=== PATIENT | female | born 1975 | race Two or more races ===

== ENCOUNTER → 2022-08-30 12:56 | Outpatient (REF) | payer MEDICAID, SELFPAY ==
--- NOTE | 2022-08-30 13:01 | HM_ITS ---
Conclusion: 1. Patient was monitored for total period of 23 hours and 40 minutes 2. Baseline was normal sinus rhythm with average heart of 86 beats per minute 3. No significant arrhythmias noted 4. No pauses or bradycardia noted 5. Patient reported 1 event while walking to the hospital correlated with sinus tachycardia MTDD
== END ==
LOC: HO.CARD 12:56
PROVIDERS: Visit Provider Internal Medicine
DX: R00.2 Palpitations (principal); R53.1 Weakness
CPT/HCPCS: 93225

== ENCOUNTER 2022-08-31 12:39 | Outpatient (REF) | payer MEDICAID, SELFPAY ==
[2022-08-31 13:22] LABS: MANUAL DIFF FLAG NO
[2022-08-31 14:21] LABS: Lactate Dehydrogenase 113 U/L (122-220); Rheumatoid Factor < 13.0 IU/mL (<15.0)
[2022-08-31 14:29] LABS: Basophils Percent Auto 0.5 % (0-2); Eosinophils Percent Auto 0.7 % (0-4); Hematocrit 39.8 % (37.0-47.0); Imm Gran Abs Auto 0.01 X10*3/uL (0.00-0.03); Imm Gran Pct Auto 0.2 % (0.0-0.4); Mean Corpuscular HGB Conc 32.7 g/dl (31.0-35.0); Mean Corpuscular Hemoglobin 28.5 pg (27.0-33.0); Mean Corpuscular Volume 87.3 fL (80.0-98.0); Mean Platelet Volume 9.9 fL (9.4-12.3); Monocytes Absolute Auto 0.3 X10*3/uL (0.1-1.2); Monocytes Percent Auto 7.2 % (2-11); Neutrophils Absolute Auto 2.7 x10*3/uL (2.0-8.3); Neutrophils Percent Auto 67.4 % (45-73); Platelet Count 329 X10*3/uL (160-400); Red Blood Count 4.56 X10*6/uL (4.20-5.50); Red Cell Distribution Width 12.1 % (11.0-16.0)
[2022-08-31 14:42] LABS: Syphilis Screen Nonreactive (Nonreactive)
[2022-09-02 08:49] LABS: ~HepC Num1 0.05 S/CO (0.00-0.79); ~Hepatitis C Antibody Nonreactive (Nonreactive)
[2022-09-02 09:08] LABS: HBc Num1 0.07 S/CO (0.00-0.79); HBsAGNum1 0.29 S/CO (0.00-0.99); HIV AB/AG Nonreactive (Nonreactive); HIV Num 1 0.04 S/CO (0.00-0.99); Hepatitis B Core Antibody Nonreactive (Nonreactive); Hepatitis B Surface Antigen Negative (Negative)
[2022-09-02 10:34] LABS: ~Hepatitis B Surface Antibody NONREACTIVE (Nonreactive)
[2022-09-02 18:54] LABS: EBV-NA IgG Index >600.00 U/mL; EBV-VCA IgM Ab >160.00 U/mL; Toxoplasma IgG Antibody <7.20 IU/mL; Toxoplasma IgM Antibody <8.00 AU/mL
[2022-09-02 21:38] LABS: TS Negative Control Passed; TS Panel A 1; TS Panel B 0; TS Positive Control Passed; TSpotTB Negative (Negative)
[2022-09-03 22:49] LABS: PTT (LAC) Screen 34 sec (<=40)
== END 2022-08-31 12:40 | disposition home or self-care (01) ==
LOC: HO.LAB 12:39
PROVIDERS: PCP Internal Medicine; Visit Provider Internal Medicine
DX: Z11.4 Encounter for screening for human immunodeficiency virus [HIV] (principal); D72.819 Decreased white blood cell count, unspecified; R59.0 Localized enlarged lymph nodes; J02.9 Acute pharyngitis, unspecified
CPT/HCPCS: 83615; 85025; 85597; 85613; 85730; 86038; 86140; 86225; 86235; 86431; 86481; 86664; 86665; 86704; 86706; 86777; 86778; 86780; 86803; 87340; 87389

== ENCOUNTER → 2022-09-23 10:40 | Outpatient (BNV) | payer MEDICAID, SELFPAY | PROVIDERS: PCP Internal Medicine; Visit Provider Internal Medicine | DX: D72.819 Decreased white blood cell count, unspecified (principal) | CPT/HCPCS: 99203; 99214 ==

== ENCOUNTER 2023-06-20 11:14 | Outpatient (AMB) | payer MEDICAID, SELFPAY ==
--- NOTE | 2023-06-20 11:29 | A.OFFVIS_ITS ---
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 Started a few months ago. Pt states she works on her feet but also at her desk depending on the day. Has not tried compression socks before. Accompanied by: Self / Same As Patient Allergies amoxicillin Allergy (Intermediate, Verified 06/20/23 11:37) Stomach Upset aspirin Allergy (Intermediate, Verified 06/20/23 11:37) swelling penicillin V Allergy (Intermediate, Verified 06/20/23 11:37) Diarrhea ketorolac Allergy (Unknown, Verified 06/20/23 11:37) swelling HPI AUTOMATION ANALYST Edema HPI Details Pleasant 48-year-old female patient presents for painful varicose veins. Complaints include pain over varicosities, swelling of lower extremities, cramping, fatigue, and heaviness of the lower extremities. It has been affecting there daily activities including walking. It is noted more so in right leg. She also notes left ankle swelling Patient denies any previous venous surgery or injections. Patient denies any history of DVT/ PE. Patient denies any history of phlebitis. Trial of compression includes - [id number] They now present for vascular evaluation regarding their varicose veins. [facility] Medical History (Updated 06/21/23 @ 07:20 by Gerardo Posada MD) delivery delivered Surgical History H/O: hysterectomy (~2020) Family History (Updated 06/20/23 @ 11:39 by SARA Choudhary) Brother Cancer Mother Varicose veins of both lower extremities Alcohol intake: never Patient Tobacco Use Status: Never used Tobacco Review of Systems Const Reports as per HPI ENT Reports no additional complaints Card Denies chest pain, Denies chest pain at rest and Denies chest pain with activity Resp Denies chest congestion and Denies cough GI Reports no additional complaints Musc Details: pain over varicosities, aching of lower extremities, swelling, cramping, heaviness and tiredness, itching Denies abnormal gait Skin/Breast Reports pruritus and Denies wounds Neuro Reports no additional complaints and Denies abnormal gait Psych Denies no additional complaints Physical Exam Vital Signs: BMI result Body Mass Index 28.0 Const General: cooperative, healthy appearing and comfortable Orientation/consciousness: oriented to person, oriented to place and oriented to time Neck Carotids: no bruits Chest Chest palpation & inspection: normal inspection of the chest and normal palpation of entire chest wall Resp Effort & Inspection: normal respiratory effort and able to speak in complete sentences Cardio Rate: regular rate Heart sounds: S1 normal heart sound present and S2 normal heart sound present Peripheral pulses: Peripheral pulses 2+ throughout GI Inspection: Yes normal to inspection Skin Other: +2 edema, large rope-like varicosities greater than 4 mm CEAP Classification C4 - skin color changes Ep - Etiology Primary As - superficial veins P - reflux General skin exam: dry skin Neuro General: oriented to person, oriented to place and oriented to time Extrem Right lower extremity: full ROM, normal capillary refill and edema Left lower extremity: full ROM, normal capillary refill and edema Psych Mental Status: mental status grossly normal Assessment & Plan Assessment & Plan (1) Varicose veins of right lower extremity with inflammation: Code(s): I83.11 - Varicose veins of right lower extremity with inflammation Plan: In short, the patient has evidence of venous insufficiency. I have discussed the pathophysiology with the patient. In addition I have provided informational material regarding venous disease to the patient. We have discussed conservative measures including compression, elevation, and exercise. I have also provided a handout regarding appropriate use of compression stockings and where to purchase good compression stockings as well. I have taken the liberty of ordering venous insufficiency testing with the patient. They will follow up with me after testing. The patient had an opportunity to ask questions regarding the treatment plan. All questions were answered. Imaging studies, laboratory studies and physical exam results were discussed and reviewed in detail. No major barriers to understanding were identified. The patient expressed understanding and agreement with the above treatment plan. The patient is aware they should contact our office by phone for worsening of the current condition or the appearance of new symptoms. Thank you for allowing me to participate in the vascular care of this patient. If you have any questions or concerns regarding the treatment for the above condition please do not hesitate to contact me. The office telephone contact is [phone]. This note is constructed using voice recognition software. While every effort has been made to ensure accuracy, pan shaker errors may have been included. Thank you for allowing me to participate in the care of your patient. Yours sincerely, Gerardo Posada MD, FACS, R.P.V.I. Orders: Orders US venous duplex LE BI 1 Week I83.11 - Varicose veins of right lower extremity with inflammation Coding Level of Care Code New Pt Level 4 (36392) Diagnoses Varicose veins of right lower extremity with inflammation I83.11
[2023-06-20 11:33] VITALS: BMI 28.0
== END 2023-06-20 12:22 | disposition home or self-care (01) ==
PROVIDERS: PCP Internal Medicine; Visit Provider Surgery Vascular Surgery
DX: I83.11 Varicose veins of right lower extremity with inflammation (principal)
CPT/HCPCS: 99203

== ENCOUNTER → 2023-06-20 11:14 | Outpatient (BNVA) | payer MEDICAID, SELFPAY | PROVIDERS: PCP Internal Medicine; Visit Provider Surgery Vascular Surgery | DX: I83.11 Varicose veins of right lower extremity with inflammation (principal) | CPT/HCPCS: 99202 ==

== ENCOUNTER 2023-09-21 14:56 | Outpatient (REF) | payer OTHER, SELFPAY ==
[2023-09-21 16:08] LABS: Rheumatoid Factor 14.9 IU/mL (<15.0)
[2023-09-21 16:11] LABS: Uric Acid 2.6 mg/dL (2.4-5.7)
[2023-09-22 10:23] LABS: Lyme Abs Screen <0.90 index
[2023-09-25 12:19] LABS: RPR Rapid Plasma Reagin NON-REACTIVE (NON-REACTIVE)
[2023-09-30 18:28] LABS: Anti Nuclear Antibody Screen POSITIVE (NEGATIVE)
== END 2023-09-21 14:57 | disposition home or self-care (01) ==
LOC: HO.HHCL 14:56
PROVIDERS: Visit Provider Emergency Medicine
DX: M25.522 Pain in left elbow (principal); L98.9 Disorder of the skin and subcutaneous tissue, unspecified
CPT/HCPCS: 36415; 84550; 86038; 86039; 86431; 86592; 86617; 86618

== ENCOUNTER 2023-10-13 13:55 | Outpatient (REF) | payer OTHER, SELFPAY ==
--- NOTE | 2023-10-13 | EMG_ITS ---
Chief complaint: Right worse than left hand numbness Reason for referral: Evaluate for Carpal Tunnel Syndrome Referred by: Dr. Ignacio Procedure done: Bilateral upper extremities NCS/EMG Precautions and/or limitations: None The limb temperature was monitored continuously and remained between 32-36 degrees C during the performance of the NCS. Nerve Conduction Studies Anti Sensory Summary Table ?Stim Site NR Onset (ms) Norm Onset (ms) Peak (ms) Norm Peak (ms) O-P Amp (?V) Norm O-P Amp Site1 Site2 Delta-0 (ms) Dist (cm) Marcellus (m/s) Norm Marcellus (m/s) Left Median Anti Sensory (2nd Digit) Wrist ? 2.6 3.4 <3.6 60.5 >10 Wrist 2nd Digit 2.6 14.0 54 Right Median Anti Sensory (2nd Digit) Wrist ? 2.8 3.8 <3.6 49.5 >10 Wrist 2nd Digit 2.8 14.0 50 Left Ulnar Anti Sensory (5th Digit) Wrist ? 2.4 3.3 <3.7 43.0 >15.0 Wrist 5th Digit 2.4 14.0 58 Right Ulnar Anti Sensory (5th Digit) Wrist ? 2.4 3.0 <3.7 33.2 >15.0 Wrist 5th Digit 2.4 14.0 58 Motor Summary Table ?Stim Site NR Onset (ms) Norm Onset (ms) O-P Amp (mV) Norm O-P Amp iAmp (mV) Amp (1st) (%) Site1 Site2 Delta-0 (ms) Dist (cm) Marclelus (m/s) Norm Marcellus (m/s) Left Median Motor (Abd Poll Brev) Wrist ? 3.3 <3.9 11.7 >4.5 14.5 100.0 Elbow Wrist 3.5 20.0 57 >45 Elbow ? 6.8 10.2 13.2 87.2 Right Median Motor (Abd Poll Brev) Wrist ? 3.8 <3.9 14.4 >4.5 16.3 100.0 Elbow Wrist 3.7 21.0 57 >45 Elbow ? 7.5 13.6 16.0 94.4 Left Ulnar Motor (Abd Dig Minimi) Wrist ? 2.3 <3.0 5.6 >5 6.4 100.0 B Elbow Wrist 3.2 19.0 59 >45 B Elbow ? 5.5 5.3 6.2 94.6 A Elbow B Elbow 1.3 10.0 77 >45 A Elbow ? 6.8 5.2 6.2 92.9 Right Ulnar Motor (Abd Dig Minimi) Wrist ? 2.2 <3.0 7.4 >5 9.3 100.0 B Elbow Wrist 3.3 19.0 58 >45 B Elbow ? 5.5 8.1 10.3 109.5 A Elbow B Elbow 1.5 10.0 67 >45 A Elbow ? 7.0 7.7 10.1 104.1 Comparison Summary Table ?Stim Site NR Peak (ms) Norm Peak (ms) P-T Amp (?V) Site1 Site2 Delta-P (ms) Norm Delta (ms) Left Median/Radial Dig I Comparison (Digit 1 - 10cm) Median ? 2.8 <2.9 52.5 Median Radial 0.6 Radial ? 2.2 <2.8 12.4 Right Median/Radial Dig I Comparison (Digit 1 - 10cm) Median ? 2.4 <2.9 21.6 Median Radial -0.7 Radial ? 3.1 <2.8 37.6 EMG ?Side Muscle Nerve Root Ins Act Fibs Psw Amp Dur Poly Recrt Int Pat Comment Right 1stDorInt Ulnar C8-T1 Nml Nml Nml Nml Nml 0 Nml Complete Right FlexCarRad Median C6-7 Nml Nml Nml Nml Nml 0 Nml Complete Right Biceps Musculocut C5-6 Nml Nml Nml Nml Nml 0 Nml Complete Right Triceps Radial C6-7-8 Nml Nml Nml Nml Nml 0 Nml Complete Right Deltoid Axillary C5-6 Nml Nml Nml Nml Nml 0 Nml Complete Left 1stDorInt Ulnar C8-T1 Nml Nml Nml Nml Nml 0 Nml Complete Left FlexCarRad Median C6-7 Nml Nml Nml Nml Nml 0 Nml Complete Left Biceps Musculocut C5-6 Nml Nml Nml Nml Nml 0 Nml Complete Left Triceps Radial C6-7-8 Nml Nml Nml Nml Nml 0 Nml Complete Left Deltoid Axillary C5-6 Nml Nml Nml Nml Nml 0 Nml Complete FINDINGS: Right median sensory nerve showed prolonged peak latency. Significant interlatency difference between left median and radial sensory nerves. All other nerves tested were within normal. Concentric needle EMG was performed in selected muscles of the bilateral upper extremities. Study did not reveal signs of electric abnormalities as shown in the table below. IMPRESSION: 1. This is an abnormal study. 2. There is electrodiagnostic evidence for bilateral borderline mild median neuropathy at the wrist, consistent with carpal tunnel syndrome. 3. There is no electrodiagnostic evidence for ulnar neuropathy, brachial plexopathy, or cervical radiculopathy. Thank you for your kind referral. Eloisa Cruz MD, JADE Board Certified, [place] [employer] and [employer] (ABPMR) Board Certified, [place] Board [employer] Electrodiagnostic [employer] (ABEM) [facility] [id number] [facility]
== END 2023-10-13 13:56 | disposition home or self-care (01) ==
LOC: HO.NEURO 13:55
PROVIDERS: PCP Internal Medicine; Visit Provider Emergency Medicine
DX: R20.0 Anesthesia of skin (principal)
CPT/HCPCS: 95886; 95911

== ENCOUNTER → 2023-10-13 14:00 | Outpatient (BNV) | payer OTHER, SELFPAY | PROVIDERS: PCP Internal Medicine; Visit Provider Physical Medicine & Rehabilitation | DX: G56.03 Carpal tunnel syndrome, bilateral upper limbs (principal); G56.13 Other lesions of median nerve, bilateral upper limbs | CPT/HCPCS: 95886; 95911 ==

== ENCOUNTER 2023-10-26 09:29 | Outpatient (REF) | payer OTHER, SELFPAY ==
--- NOTE | ~2023-10-26 | XR_ITS ---
EXAMINATION: XR ELBOW, LEFT CLINICAL INFORMATION: Pain. COMPARISON: None available. TECHNIQUE: AP, lateral, and oblique views of the left elbow. FINDINGS: The bones and soft tissues are normal. No fracture or joint effusion. Alignment is anatomic. Joint spaces are maintained. XR/XR elbow LT min 3V IMPRESSION: Normal left elbow.
== END 2023-10-26 09:30 | disposition home or self-care (01) ==
LOC: HO.HOSX 09:29
PROVIDERS: Visit Provider Physician Assistant
DX: M77.12 Lateral epicondylitis, left elbow (principal)
CPT/HCPCS: 73080; 99202

== ENCOUNTER 2023-10-26 13:31 | Outpatient (AMB) | payer OTHER, SELFPAY ==
--- NOTE | 2023-10-26 13:42 | MHC.OFFVIS ---
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 Patient reports off and on pain for 2 months now. Patient has tried Tylenol which didn't give her relief. Pain is worse when she is she is taking a shower, getting dressed and holding heavy things. 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 Patient reported to PCP she has bilateral hand numbness persistent with left elbow pain. While in the office today the patient reports having intermittent pain for 2 months. She confirms the use of Tylenol with no relief. She reports an increase in pain when showering, getting dressed, and holding every items. 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 Tenderness to palpation at the lateral epicondyle. Pain is reproducible with resisted wrist extension at the lateral epicondyle. NVI. Assessment & Plan Assessment & Plan (1) Left tennis elbow: Code(s): M77.12 - Lateral epicondylitis, left elbow Plan Ms. Waters is a 48-year-old right hand dominant female who presents in the office today, as a new patient, for an evaluation of left elbow pain. Patient reported to PCP she has bilateral hand numbness persistent with left elbow pain. While in the office today the patient reports having intermittent pain for 2 months. She confirms the use of Tylenol with no relief. She reports an increase in pain when showering, getting dressed, and holding every items. I have instructed the patient that she could obtain a tennis elbow brace. I would also recommend occupational therapy. We discussed the role of cortisone injections. However, I would like her to attend therapy and try bracing first. If these two failed, then the next option would be a cortisone injection. In regards to bilateral carpal tunnel syndrome, she would like to speak with Doctor Valdes to hear about the procedure more in depth and to meet the surgeon to discuss carpal tunnel release. We discussed the procedure and the recovery in the office today. Follow up will be with Dr. Valdes, or sooner if needed. X-rays of the left elbow which were obtained while in the office today and were reviewed by me, Karen Anderson PA-C, revealed no acute fracture or dislocation. EMG of the bilateral upper extremities, obtained on 10/13/2023, revealed: 1. This is an abnormal study. 2. There is electrodiagnostic evidence for bilateral borderline mild median neuropathy at the wrist, consistent with carpal tunnel syndrome. 3. There is no electrodiagnostic evidence for ulnar neuropathy, brachial plexopathy, or cervical radiculopathy. Orders: Orders OT Evaluation and Treatment Today M77.12 - Lateral epicondylitis, left elbow XR elbow LT min 3V Today M25.529 - Pain in unspecified elbow Patient Instructions: Scribed by Beti Aparicio quality engineer medical device, for Karen Anderson PA-C on 10/26/2023 at 1:35 pm, EST. Coding Level of Care Code New Pt Level 4 (19917) Diagnoses Left tennis elbow M77.12
== END 2023-10-26 14:30 | disposition home or self-care (01) ==
PROVIDERS: PCP Internal Medicine; Visit Provider Physician Assistant
DX: M77.12 Lateral epicondylitis, left elbow (principal)
CPT/HCPCS: 99204

== ENCOUNTER 2023-11-08 09:17 | Outpatient (REF) | payer OTHER, SELFPAY ==
--- NOTE | ~2023-11-08 | MR_ITS ---
EXAMINATION: MR BRAIN WITHOUT CONTRAST CLINICAL INFORMATION: Syncope. Dizziness. Left hand numbness. COMPARISON: None available. TECHNIQUE: MRI of the brain was obtained using routine sequences without contrast. Sagittal T2 FLAIR imaging was included on this exam. FINDINGS: No focal restricted diffusion is demonstrated to suggest acute or subacute cerebral ischemia. No evidence of acute or chronic hemorrhagic products on heme-sensitive imaging. Minimal nonspecific scattered periventricular and deep white matter T2 FLAIR hyperintensities in the bilateral frontal lobes. No additional parenchymal signal abnormalities. The ventricles are normal in morphology and size. No abnormal mass effect. No midline shift. The sella turcica is mildly expanded with partial flattening of the pituitary gland. The cerebellar tonsils are positioned at the level the foramen magnum. Normal arterial and venous vascular flow voids are present. Normal, homogeneous marrow signal. Mild mucosal thickening of the paranasal sinuses. No signal abnormalities within the mastoids. MR/MR head/brain wo con IMPRESSION: 1. No acute intracranial abnormalities. 2. Minimal nonspecific white matter changes.
== END 2023-11-08 09:18 | disposition home or self-care (01) ==
LOC: HO.MRI 09:17
PROVIDERS: PCP Internal Medicine; Visit Provider Internal Medicine
DX: R55 Syncope and collapse (principal); R20.0 Anesthesia of skin
CPT/HCPCS: 70551

== ENCOUNTER 2023-11-15 09:57 | Outpatient (REF) | payer OTHER, SELFPAY ==
[2023-11-15 11:25] LABS: MANUAL DIFF FLAG NO
[2023-11-15 11:44] LABS: Basophils Percent Auto 0.5 % (0-2); Eosinophils Percent Auto 0.8 % (0-4); Hematocrit 39.3 % (37.0-47.0); Hemoglobin 12.9 g/dl (12.0-16.0); Imm Gran Abs Auto 0.02 X10*3/uL (0.00-0.03); Imm Gran Pct Auto 0.5 % (0.0-0.4); Lymphocytes Absolute Auto 1.1 X10*3/uL (1.2-4.9); Lymphocytes Percent Auto 30.4 % (20-40); Mean Corpuscular HGB Conc 32.8 g/dl (31.0-35.0); Mean Corpuscular Hemoglobin 28.2 pg (27.0-33.0); Mean Platelet Volume 9.9 fL (9.4-12.3); Monocytes Absolute Auto 0.3 X10*3/uL (0.1-1.2); Monocytes Percent Auto 8.3 % (2-11); Neutrophils Absolute Auto 2.2 x10*3/uL (2.0-8.3); Neutrophils Percent Auto 59.5 % (45-73); Platelet Count 324 X10*3/uL (160-400); Red Blood Count 4.57 X10*6/uL (4.20-5.50); Red Cell Distribution Width 12.5 % (11.0-16.0); White Blood Count 3.8 X10*3/uL (4.8-10.8)
[2023-11-15 12:08] LABS: Alanine Aminotransferase 14 U/L (0-31); Albumin Level 4.4 g/dL (3.5-5.0); Alkaline Phosphatase 122 U/L (39-117); Anion Gap 13 (12-20); Aspartate Amino Transferase 15 U/L (5-31); Bilirubin Total 0.5 mg/dL (0.0-1.0); Blood Urea Nitrogen 13 mg/dL (9-16); Calcium 9.5 mg/dL (8.4-10.2); Carbon Dioxide 23 mmol/L (22-29); Chloride 106 mmol/L (96-108); Cholesterol 212 mg/dL (<200); Estimated Glomerular Filt Rate > 60; Glucose Random 87 mg/dL (60-115); HDL Cholesterol 56 mg/dL (>40); LDL Cholesterol Calculated 134 mg/dL (<100); Lactate Dehydrogenase 138 U/L (122-220); Potassium 3.5 mmol/L (3.3-5.1); Sodium 138 mmol/L (135-145); Total Protein 8.1 g/dL (6.5-8.0); Triglycerides 114 mg/dL (<150)
[2023-11-15 12:13] LABS: TSH reflex Free T4 3.71 uIU/mL (0.32-4.0); Vitamin D 25-OH Total 28.5 ng/mL (>30)
[2023-11-15 12:49] LABS: Reflex LDLD? No
== END 2023-11-15 09:58 | disposition home or self-care (01) ==
LOC: HO.HHCL 09:57
PROVIDERS: Visit Provider Internal Medicine
DX: D72.819 Decreased white blood cell count, unspecified (principal); R55 Syncope and collapse; R20.0 Anesthesia of skin
CPT/HCPCS: 36415; 80053; 80061; 82306; 83615; 84443; 85025

== ENCOUNTER 2024-01-10 10:49 | Outpatient (AMB) | payer OTHER, SELFPAY ==
[2024-01-10 10:59] VITALS: BP 102/60; BMI 28.1
--- NOTE | 2024-01-10 10:59 | A.OFFVIS_ITS ---
Vital Signs 01/10/24 10:59 Height 5 ft 2 in Weight 153 lb 10.595 oz BMI 28.1 BP 102/60 Blood Pressure Location Rt brachial Position Sitting Intake Visit Reasons: +BOWEN Intake Note: New patient, externally referred by Dr. Lemus, presents to office today for joint pain and +BOWEN. 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 Waters 48yoF presents on referral from PCP for evaluation of chronic joint pain. --pain for over 10 year all over her body - Knees , legs, Neck, Ankle, Arms. 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 --Hysterectomy with one ovary remaining - may be perimenausal. Had night flashes and nightsweats last Jun 2023 but has since stopped. --Had mono over 10 years - still has has EBV IgM Given this history her PCP wants her checked for autoimmune diseases as they are thinking this may be what is causing her chronic EBV IgM --Uses Tylenol for pain --Hx of HS - Current left buttocks lesion since about October 2019- Given Doxy by DERM to treat and improves. --Has Eczema treated by DERM --about in September 2023 she was having sensation of spinning whenever she sits without moving or changing position. This has since resolved without intervention. --most times does not feel she has restful sleep; has fatigue --no respiratory or cardiac symptoms; denies pleuritis, pericarditis. --gets heat rash in the sun- denies fatigue or malaise with the sun --denies dry mouth, uses eye drops twice per week, denies mouth sores without injury. --no increased hair shedding, --denies Urine symptoms --IBS - More constipation then diarrhea follows with GI. 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 External ear normal. NOSE/SINUS:? Airflow through both nares, no nasal discharge, no bleeding THROAT:? Oral mucosa moist, no ulcerations NECK:? No thyromegaly or masses, no adenopathy, trachea midline. HEART:? Regular rhythm, S1-S2 heard, no murmurs, rubs or gallops. LUNG:? Clear to percussion and auscultation EXTREMITIES:? No edema, no calf tenderness, normal peripheral pulses. NEURO:? Oriented and alert x3.? No focal weakness.? Reflexes symmetric.? Gait normal. SKIN:? There are no skin lesions evident. No objective signs of Raynaud's phenomenon. JOINT EXAM: Cervical Spine:.? Full range of motion without pain; no tenderness. Thoracic Spine:.? No scoliosis.? No tenderness on palpation. Lumbar Spine:.? Alignment normal.? Full range of motion without pain, no tenderness. Chest Wall:.? No tenderness, swelling, increased warmth or erythema. Hands:.? Normal pain-free range of motion without tenderness, swelling, increased warmth or erythema. Able to make a full fist and has a good outcomes specialist strength. Wrists:.? Normal pain-free range of motion without tenderness, swelling, increased warmth or erythema. Elbows:. Normal pain-free range of motion with mild tenderness at lateral epicondyle, but no swelling, increased warmth or erythema. Shoulders:.?? Full range of motion without pain. No tenderness, weakness, swelling, increased warmth or erythema. Hips:.? Full range of motion without pain. Hip bursa:.? No tenderness. Knees:.?? Normal pain-free range of motion without tenderness, swelling, increased warmth or erythema.? There is no effusion or crepitation Ankles:.? Normal pain-free range of motion without tenderness, swelling, increased warmth or erythema. Feet:.? Normal pain-free range of motion without tenderness, swelling, increased warmth or erythema. Tender points:? No tenderness to digital palpation at the occiput, trapezius, second rib, lateral epicondyle, knees, greater trochanter and gluteal area bilaterally. ? Assessment & Plan Assessment & Plan (1) Leukopenia: Code(s): D72.819 - Decreased white blood cell count, unspecified Category: Medical Qualifiers: Leukopenia type: lymphocytopenia Qualified Code(s): D72.810 - Lymphocytopenia (2) Chronic pain of multiple joints: Code(s): M25.50 - Pain in unspecified joint; G89.29 - Other chronic pain Category: Medical (3) BOWEN positive: Code(s): R76.8 - Other specified abnormal immunological findings in serum Category: Medical (4) Hidradenitis suppurativa: Code(s): L73.2 - Hidradenitis suppurativa Category: Medical Plan #Chronic pain/+BOWEN/Hidradenitis Suppurativa: The patient presents for evaluation of multiple joint pain and +BOWEN 1:80. I will obtain a Rheum panel to evaluate further. The PE was mostly unremarkable. She has some slight tenderness to base of thumb but no synovitis or other inflammatory findings. She should continue to see DERM for Hidradenitis Suppurative, it seems the Doxy works for her. The referral visit notes mentioned a DX of tenosynovitis in september 2023. However, the patient cannot describe or articulate the experience and denies those symptoms as a I described them to her. I will obtain xray to assess the status of her knees, foot/ankle and hands. #Leukopenia: Need updated labs. She has not seen Heme in over 2 years. I spent 40 minutes reviewing patient and documenting F/u 6 weeks Orders: Orders Immunoglobulins,IgG IgA IgM 01/10/24 D72.819 - Decreased white blood cell count, unspecified, G89.29 - Other chronic pain, M25.50 - Pain in unspecified joint Immunofixation Pnl, Serum 01/10/24 D72.819 - Decreased white blood cell count, unspecified, G89.29 - Other chronic pain, M25.50 - Pain in unspecified joint Protein Electrophoresis, Serum 01/10/24 D72.819 - Decreased white blood cell count, unspecified, G89.29 - Other chronic pain, M25.50 - Pain in unspecified joint Scleroderma 70 Antibody 01/10/24 D72.819 - Decreased white blood cell count, unspecified, G89.29 - Other chronic pain, M25.50 - Pain in unspecified joint BOWEN Reflex Titer and Pattern 01/10/24 D72.819 - Decreased white blood cell count, unspecified, G89.29 - Other chronic pain, M25.50 - Pain in unspecified joint Anti-Centromere B Antibodies 01/10/24 D72.819 - Decreased white blood cell coun t, unspecified, G89.29 - Other chronic pain, M25.50 - Pain in unspecified joint Anti Extractable Nuclear Ag 01/10/24 D72.819 - Decreased white blood cell count, unspecified, G89.29 - Other chronic pain, M25.50 - Pain in unspecified joint Angiotensin Converting Enzyme 01/10/24 D72.819 - Decreased white blood cell count, unspecified, G89.29 - Other chronic pain, M25.50 - Pain in unspecified joint Complement C3 01/10/24 D72.819 - Decreased white blood cell count, unspecified, G89.29 - Other chronic pain, M25.50 - Pain in unspecified joint Complement C4 01/10/24 D72.819 - Decreased white blood cell count, unspecified, G89.29 - Other chronic pain, M25.50 - Pain in unspecified joint Complete Blood Count Auto Diff 01/10/24 D72.819 - Decreased white blood cell count, unspecified, G89.29 - Other chronic pain, M25.50 - Pain in unspecified joint Comprehensive Met. Panel 01/10/24 D72.819 - Decreased white blood cell count, unspecified, G89.29 - Other chronic pain, M25.50 - Pain in unspecified joint C Reactive Protein 01/10/24 D7.819 - Decreased white blood cell count, unspecified, G89.29 - Other chronic pain, M25.50 - Pain in unspecified joint UA w Microscopic 01/10/24 D7.819 - Decreased white blood cell count, unspecified, G89.29 - Other chronic pain, M25.50 - Pain in unspecified joint Rheumatoid Factor 01/10/24 D72.819 - Decreased white blood cell count, unspecified, G89.29 - Other chronic pain, M25.50 - Pain in unspecified joint Cyclic Citrullinated Peptide 01/10/24 D72.819 - Decreased white blood cell count, unspecified, G89.29 - Other chronic pain, M25.50 - Pain in unspecified joint Mitochondrial Antibody 01/10/24 G89.29 - Other chronic pain, M25.50 - Pain in unspecified joint, R76.8 - Other specified abnormal immunological findings in serum Smooth Muscle Antibody 01/10/24 G89.29 - Other chronic pain, M25.50 - Pain in unspecified joint, R76.8 - Other specified abnormal immunological findings in serum Thyroglobulin Antibodies 01/10/24 G89.29 - Other chronic pain, M25.50 - Pain in unspecified joint, R76.8 - Other specified abnormal immunological findings in serum XR hand LT 2V 01/10/24 G89.29 - Other chronic pain, M25.50 - Pain in unspecified joint, R76.8 - Other specified abnormal immunological findings in serum XR foot LT min 3V 01/10/24 G89.29 - Other chronic pain, M25.50 - Pain in unspecified joint, R76.8 - Other specified abnormal immunological findings in serum Erythrocyte Sedimentation Rate 01/10/24 D72.819 - Decreased white blood cell count, unspecified, G89.29 - Other chronic pain, M25.50 - Pain in unspecified joint Sjogren's Antibodies 01/10/24 D72.819 - Decreased white blood cell count, unspecified, G89.29 - Other chronic pain, M25.50 - Pain in unspecified joint Aldolase 01/10/24 D72.819 - Decreased white blood cell count, unspecified, G89.29 - Other chronic pain, M25.50 - Pain in unspecified joint Anti DNA DS Antibody 01/10/24 D72.819 - Decreased white blood cell count, unspecified, G89.29 - Other chronic pain, M25.50 - Pain in unspecified joint Creatine Kinase Total 01/10/24 D72.819 - Decreased white blood cell count, unspecified, G89.29 - Other chronic pain, M25.50 - Pain in unspecified joint Thyroid Peroxidase Antibodies 01/10/24 G89.29 - Other chronic pain, M25.50 - Pain in unspecified joint, R76.8 - Other specified abnormal immunological findings in serum Thyroid Stimulating Hormone 01/10/24 G89.29 - Other chronic pain, M25.50 - Pain in unspecified joint, R76.8 - Other specified abnormal immunological findings in serum XR hand RT 2V 01/10/24 G89.29 - Other chronic pain, M25.50 - Pain in unspecified joint, R76.8 - Other specified abnormal immunological findings in serum XR knee RT 3V 01/10/24 G89.29 - Other chronic pain, M25.50 - Pain in unspecified joint, R76.8 - Other specified abnormal immunological findings in serum XR knee LT 3V 01/10/24 G89.29 - Other chronic pain, M25.50 - Pain in unspecified joint, R76.8 - Other specified abnormal immunological findings in serum XR foot RT min 3V 01/10/24 G89.29 - Other chronic pain, M25.50 - Pain in unspecified joint, R76.8 - Other specified abnormal immunological findings in serum Coding Level of Care Code New Pt Level 4 (38961) Diagnoses Lymphopenia D72.810 Leukopenia type: lymphocytopenia Chronic pain of multiple joints M25.50; G89.29 BOWEN positive R76.8 Hidradenitis suppurativa L73.2
== END 2024-01-10 11:58 | disposition home or self-care (01) ==
PROVIDERS: PCP Internal Medicine; Visit Provider Nurse Practitioner Family
DX: D72.810 Lymphocytopenia (principal); M25.50 Pain in unspecified joint; G89.29 Other chronic pain; R76.8 Other specified abnormal immunological findings in serum; L73.2 Hidradenitis suppurativa
CPT/HCPCS: 99204

== ENCOUNTER → 2024-01-10 10:49 | Outpatient (BNVA) | payer OTHER, SELFPAY | PROVIDERS: PCP Internal Medicine; Visit Provider Nurse Practitioner Family | DX: R76.8 Other specified abnormal immunological findings in serum (principal); M25.50 Pain in unspecified joint; D72.810 Lymphocytopenia; L73.2 Hidradenitis suppurativa | CPT/HCPCS: 99202 ==

== ENCOUNTER 2024-01-27 10:37 | Outpatient (REF) | payer OTHER, SELFPAY ==
[2024-01-27 11:08] LABS: MANUAL DIFF FLAG NO
[2024-01-27 11:16] LABS: Basophils Percent Auto 0.7 % (0-2); Eosinophils Absolute Auto 0.1 X10*3/uL (0.0-0.4); Eosinophils Percent Auto 1.7 % (0-4); Hematocrit 40.3 % (37.0-47.0); Imm Gran Abs Auto 0.01 X10*3/uL (0.00-0.03); Imm Gran Pct Auto 0.2 % (0.0-0.4); Lymphocytes Absolute Auto 1.1 X10*3/uL (1.2-4.9); Lymphocytes Percent Auto 28.2 % (20-40); Mean Corpuscular HGB Conc 32.3 g/dl (31.0-35.0); Mean Corpuscular Hemoglobin 28.4 pg (27.0-33.0); Mean Platelet Volume 9.3 fL (9.4-12.3); Monocytes Absolute Auto 0.2 X10*3/uL (0.1-1.2); Neutrophils Absolute Auto 2.5 x10*3/uL (2.0-8.3); Neutrophils Percent Auto 63.2 % (45-73); Platelet Count 308 X10*3/uL (160-400); Red Blood Count 4.58 X10*6/uL (4.20-5.50); Red Cell Distribution Width 12.9 % (11.0-16.0)
[2024-01-27 11:19] LABS: Appearance Urine Clear; Color Urine Yellow; Glucose Urine UA Negative (Negative); Leukocyte Esterase Urine Negative (Negative); Nitrite Urine Negative (Negative); PH 6.5 (5.0-9.0); UMIC TRIGGER UA YES; Urine Blood Trace (Negative); Urine Ketones Negative (Negative); Urine Protein Negative (Neg-Trace)
[2024-01-27 11:22] LABS: Bacteria Urine None Seen (None Seen); Hyaline Casts Urine 0-2 /LPF (0-2); RBC Urine 0-2 /HPF (0-2); Squamous Epithelial Cell Urine 0-2 /HPF (0-2); WBC Urine 0-5 /HPF (0-5)
[2024-01-27 11:28] LABS: Rheumatoid Factor 14.8 IU/mL (<15.0)
[2024-01-27 11:39] LABS: Alanine Aminotransferase 20 U/L (0-31); Albumin Level 4.5 g/dL (3.5-5.0); Alkaline Phosphatase 112 U/L (39-117); Anion Gap 16 (12-20); Aspartate Amino Transferase 17 U/L (5-31); Bilirubin Total 0.6 mg/dL (0.0-1.0); Blood Urea Nitrogen 13 mg/dL (9-16); C Reactive Protein 0.37 mg/dL (< or = 0.50); Calcium 9.5 mg/dL (8.4-10.2); Carbon Dioxide 23 mmol/L (22-29); Chloride 105 mmol/L (96-108); Estimated Glomerular Filt Rate > 60; Glucose Random 90 mg/dL (60-115); Potassium 4.2 mmol/L (3.3-5.1); Sodium 140 mmol/L (135-145); Total Protein 8.3 g/dL (6.5-8.0)
[2024-01-27 11:54] LABS: Thyroid Stimulating Hormone 1.12 uIU/mL (0.32-4.0)
[2024-01-27 11:57] LABS: Erythrocyte Sedimentation Rate 8 MM/HR (0-20)
[2024-01-29 09:39] LABS: Complement C3 148 mg/dL (83-193)
[2024-01-30 11:33] LABS: IgA 263 mg/dL (47-310); IgG 1608 mg/dL (600-1640); IgM 202 mg/dL (50-300)
[2024-01-30 11:37] LABS: Prot Elec - Albumin 4.5 g/dL (3.8-4.8); Prot Elec - Alpha1 0.3 g/dL (0.2-0.3); Prot Elec - Alpha2 0.7 g/dL (0.5-0.9); Prot Elec - Beta 1 0.5 g/dL (0.4-0.6); Prot Elec - Beta 2 0.5 g/dL (0.2-0.5); Prot Elec - Gamma 1.4 g/dL (0.8-1.7); Prot Elec - Total Protein 7.8 g/dL (6.1-8.1)
[2024-01-30 15:19] LABS: Anti DNA DS Antibody <1 IU/mL; Antibody to SS-A Antigen 4.8 POS AI (<1.0 NEG); Antibody to SS-B Antigen <1.0 NEG AI (<1.0 NEG); SM/Ribonucleoprotein Ab <1.0 NEG AI (<1.0 NEG); Scleroderma 70 Antibody <1.0 NEG AI (<1.0 NEG); Smith Protein <1.0 NEG AI (<1.0 NEG)
[2024-01-30 21:09] LABS: Anti-Centromere B Antibodies <1.0 NEG AI (<1.0 NEG)
[2024-01-30 23:57] LABS: Cyclic Citrullinated Peptide <16 UNITS
[2024-01-31 08:28] LABS: Aldolase 4.5 U/L (<=8.1)
[2024-01-31 08:48] LABS: Thyroid Peroxidase Antibodies 1 IU/mL (<9)
[2024-01-31 08:53] LABS: Thyroglobulin Antibodies 8 IU/mL (< or = 1)
[2024-01-31 09:08] LABS: Mitochondrial Antibodies NEGATIVE (NEGATIVE)
[2024-02-02 15:13] LABS: Angiotensin Converting Enzyme 36.4 U/L (9-67)
[2024-02-03 08:57] LABS: Smooth Muscle Antibody <20 U (<20)
[2024-02-05 15:28] LABS: Anti Nuclear Antibody Pattern Nuclear, Speckled; Anti Nuclear Antibody Screen POSITIVE (NEGATIVE)
== END 2024-01-27 10:38 | disposition home or self-care (01) ==
LOC: HO.LAB 10:37
PROVIDERS: PCP Internal Medicine; Visit Provider Nurse Practitioner Family
DX: M25.50 Pain in unspecified joint (principal); G89.29 Other chronic pain; D72.819 Decreased white blood cell count, unspecified; R76.8 Other specified abnormal immunological findings in serum
CPT/HCPCS: 36415; 80053; 81001; 82085; 82164; 82550; 82784; 84165; 84443; 85025; 85652; 86015; 86038; 86039; 86140; 86160; 86200; 86225; 86235; 86334; 86376; 86381; 86431; 86800

== ENCOUNTER 2024-02-13 11:54 | Outpatient (REF) | payer OTHER, SELFPAY | END 2024-02-13 11:55 | disposition home or self-care (01) | LOC: HO.HHCLNP 11:54 | PROVIDERS: Visit Provider Nurse Practitioner Family | DX: R30.0 Dysuria (principal) | CPT/HCPCS: 87086 ==

== ENCOUNTER 2025-04-15 08:45 | Outpatient (AMB) | payer OTHER, SELFPAY ==
--- NOTE | 2025-04-15 08:50 | A.OFFVIS_ITS ---
Intake Visit Reasons: New prob- Bilateral Hand numbness Intake Note: Toshia is a 50 year old right hand dominant female who presents today for a New Problem Visit to evaluate Bilateral Hand Numbness, Right is worse. 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 She is unsure of which finger is most bothersome to her. She shares she is woken up by the symptoms. Denies finger locking. 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 She states she has been limited to what she can do due to her symptoms. Her employer is willing to accommodate her but she would have to bring in paperwork. She hs tried braces,bilaterally, but these bother her to sleep. Denies any prior injuries or surgeries to the hands. Welfare Eligibility Worker Required: No Allergies amoxicillin Allergy (Intermediate, Verified 04/15/25 08:53) Stomach Upset aspirin Allergy (Intermediate, Verified 04/15/25 08:53) swelling penicillin V Allergy (Intermediate, Verified 04/15/25 08:53) Diarrhea ketorolac Allergy (Unknown, Verified 04/15/25 08:53) swelling ibuprofen Adverse Reaction (Severe, Verified 04/15/25 08:53) Eye Swelling HPI HPI New prob- Bilateral Hand numbness: Details: Toshia is a 50 year old right hand dominant female who presents today for a New Problem Visit to evaluate Bilateral Hand Numbness, Right is worse. 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 She is unsure of which finger is most bothersome to her. She shares she is woken up by the symptoms. Denies finger locking. 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 She states she has been limited to what she can do due to her symptoms. Her employer is willing to accommodate her but she would have to bring in paperwork. She hs tried braces,bilaterally, but these bother her to sleep. Denies any prior injuries or surgeries to the hands. 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 Good APB muscle firing and good finger cross. Vascular: Capillary refill brisk. ROM: Patient can make a fist and extend all their digits. Skin: No lacerations or abrasions noted. General: No ecchymosis. No erythema or evidence of infection. Results Reviewed Results Reviewed: IMPRESSION: 1. This is an abnormal study. 2. There is electrodiagnostic evidence for bilateral borderline mild median neuropathy at the wrist, consistent with carpal tunnel syndrome. 3. There is no electrodiagnostic evidence for ulnar neuropathy, brachial plexopathy, or cervical radiculopathy. Thank you for your kind referral. Eloisa Cruz MD, JADE Assessment & Plan Assessment & Plan (1) Bilateral carpal tunnel syndrome: Code(s): G56.03 - Carpal tunnel syndrome, bilateral upper limbs Category: Medical Plan 1 bilateral carpal tunnel syndrome Symptoms intermittent, daily, worse at night Patient is educated about this condition Patient is educated about the typical treatment course At this time, patient is informed that the preferred treatment for carpal tunnel syndrome is surgical intervention However, the patient states that she is hesitant to get signed up for surgery at this time, and would like some time to think about it Therefore, patient is booked appointment in 6-8 weeks to discuss surgical intervention for bilateral carpal tunnel syndrome Patient understands this is amenable to this plan Follow-up at that point, sooner with any acute concerns Orders: Orders OT Evaluation and Treatment 04/15/25 G56.03 - Carpal tunnel syndrome, bilateral upper limbs Coding Level of Care Code New Pt Level 3 (79304) Diagnoses Bilateral carpal tunnel syndrome G56.03
--- OUTSIDE RECORDS SUMMARY | 2025-04-15 10:35 | XMS_ITS | Clinical Summary ---
Author Organization [facility] Address [address] [place] [address] Phone Care Team Providers Care Aircraft Electrical Systems Specialist Name Role Phone Jewell Lemus MD Primary Care Provider [phone] Allergies Active Allergy Reactions Criticality Noted Date Comments Amoxicillin Swelling 06/13/2017 Aspirin Swelling 06/13/2017 Ketorolac 08/26/2022 Penicillins Diarrhea 09/12/2017 Medications polyethylene glycol (COLYTE) 240-22.72-6.72 -5.84 gram solution Take 4,000 mL by mouth every 15 minutes. 08/26/2022 Active loratadine (CLARITIN) 10 mg tablet 1 Tablet. 05/31/2017 Active fluticasone propionate (FLONASE) 50 mcg/actuation nasal spray SHAKE LIQUID AND USE 1 TO 2 SPRAYS IN EACH NOSTRIL EVERY DAY NEEDED 12/03/2021 Active famotidine (PEPCID) 40 mg tablet TAKE 1 TABLET BY MOUTH TWICE DAILY NEEDED FOR HEART BURN 02/27/2023 Active acetaminophen (TYLENOL) 500 mg tablet Take 2 Tabs by mouth every 6 hours as needed for Pain. 07/06/2020 Active LORATADINE ORAL Take by mouth. Active butalb/acetamin ophen/caffeine (FIORICET ORAL) Take by mouth. Active albuterol HFA (PROAIR HFA ; PROVENTIL HFA ; VENTOLIN HFA) 90 mcg/actuation inhaler Inhale into the lungs. Active ergocalciferol (VITAMIN D-2) 1,250 mcg (50,000 unit) capsule Take 1 capsule (50,000 Units total) by mouth 1 (one) time per week. 10/22/2024 Active Active Problems Problem Noted Date Diagnosed Date Hydradenitis 08/03/2018 IBS (irritable bowel syndrome) 09/12/2017 Surgical History Surgery Date Site/Laterality Comments SECTION PROCEDURE: HISTORICAL TUBAL LIGATION PROCEDURE: HISTORICAL TUBAL LIGATION COLONOSCOPY PROCEDURE: HISTORICAL COLONOSCOPY ROBOTIC ASSISTED HYSTERECTOMY 09/01/2020 PROCEDURE: HISTORICAL ROBOTIC HYSTERECTOMY WITH OR WITHOUT BSO; COMMENT: Total laparoscopic hysterectomy, right salpingectomy, lysis of adhesions Medical History Medical History Date Comments Hydradenitis 08/03/2018 DX:Hydradenitis IBS (irritable bowel syndrome) 09/12/2017 D X:IBS (irritable bowel syndrome) Menorrhagia 08/19/2020 DX:Menorrhagia Family History Medical History Relation Name Comments Testicular cancer Brother Diabetes Father Hypertension Father Mental illness Father Other: Cardiac disease Father Stomach cancer Maternal Grandfather Arthritis Mother Diabetes Mother Hypertension Mother Thyroid disease Mother Ulcerative colitis Mother Breast cancer Mother's side cousine Uterine cancer Sister Relation Name Status Comments Brother Alive Father Maternal Grandfather Mother Alive Mother's side cousine Alive Sister Alive Social History Tobacco Use Types Packs/Day Years Used Date Smoking Tobacco: Never Smokeless Tobacco: Never Alcohol Use Standard Drinks/Week Comments No 0 (1 standard drink = 0.6 oz pur e alcohol) Comments No Sex and Gender Information Value Date Recorded Sex Assigned at Not on file Legal Sex Female 7:04 AM EST Gender Identity Not on file Sexual Orientation Not on file Obstetrics History Para Term AB IAB SAB Ectopic Multiple Livin g Live Births 3 3 3 3 3 Date Outcome GA Total Labor Labor//3rd Weight Sex Type Anes PTL Kajal A1 A5 Name Clin 11/19 Term M CS-Un spec Living Fernando 06/15 Term M CS-Un spec Living Naveen 03/23 Term F CS-Un spec Living Nataili e Last Filed Vital Signs Vital Sign [place] Time Taken Comments Blood Pressure 107/67 12/10/2024 8:50 AM EDT Pulse 88 12/10/2024 8:50 AM EDT Temperature - - Respiratory Rate - - Oxygen Saturation - - Inhaled Oxygen Concentration - - Weight 68.5 kg (151 lb) 12/31/2024 1:01 PM EDT Height 157.5 cm (5' 2 ) 12/31/2024 1:01 PM EDT Body Mass Index 27.62 12/31/2024 1:01 PM EDT Plan of Treatment Upcoming Encounters Date Type Department Care Team (Late st Contact Info) Description 08/26/2025 9:40 AM EST Office Visit Gastroenterology - [place] [address] [facility] [address] [place] [address] Ebonie Eddy, LELO [address] [facility] [address] [place] [address] Health Maintenance Due Date Last Done Comments Hepatitis B Vaccines (1 of 3 - 19+ 3-dose series) 1993 Pneumococcal Vaccine: 50+ Years (1 of 2 - PCV) 1993 Cervical Cancer Screening: P ap Smear 06/13/2020 06/13/2017, 06/13/2017 Cholesterol Screening (Lipid Panel) 07/09/2022 HIV Screening 07/09/2022 Hepatitis C Screening 07/09/2022 Social Influencers of Health Screening 07/09/2022 DTaP,Tdap,and Td Vaccines (3 - Td or Tdap) 09/25/2023 09/25/2013, 04/13/2005 Zoster Vaccines (1 of 2) 2024 Depression Screening 07/31/2024 COVID-19 Vaccine (1 - 2023-2 5 season) 2025 Influenza Vaccine (#1) 2025 8, 08/13/2012, 06/04/2010 Breast Cancer Screening 12/31/2026 01/01/20 25, 06/03/2021, 06/28/2018 Colorectal Cancer Screening: Colonoscopy 07/03/2027 07/03/2017 MMR Vaccines Aged Out 01/15/2004 No longer eligi ble based on patient's age to complete this topic HIB Vaccines Aged Out No longer eligi ble based on patient's age to complete this topic HPV Vaccines Aged Out No longer eligi ble based on patient's age to complete this topic Hepatitis A Vaccines Aged Out No long er eligible based on patient's age to complete this topic IPV Vaccines Aged Out No longer eligi ble based on patient's age to complete this topic Meningococcal ACWY Vaccine Aged Out N o longer eligible based on patient's age to complete this topic Meningococcal B Vaccine Aged Out No l onger eligible based on patient's age to complete this topic RSV Immunization Patients Under 20 months Aged Out No longer eligible b ased on patient's age to complete this topic Varicella Vaccines Aged Out No longer eligible based on patient's age to complete this topic Procedures Procedure Name Priority Date/Time Associated Diagnosis Comments MG MAMMO DIGITAL SCREENING W WILBERT BILAT Routine 12/31/2024 1:22 PM EDT Screening breast examination COLONOSCOPY Routine 07/03/2017 HPV Routine 06/13/2017 from Last 3 Months or Most Recently Relevant to Health Maintenance Results * MG Mammo Digital Screening w Wilbert bilat (12/31/2024 1:22 PM EDT) Anatomical Region Laterality Modality Breast Bilateral Mammography 01/01/2025 9:41 AM EDT Impressions 01/01/2025 10:00 AM EDT No mammographic evidence of malignancy. No suspicious interval change. A negative mammogram in the presence of a clinically suspicious palpable abnormality does not preclude the possibility of malignancy or alter the indications for biopsy. ASSESSMENT: BI-RADS 1: NEGATIVE RECOMMENDATION(S): 1: Routine screening mammogram BILATERAL in 1 year. [facility]amm[facility] location: [facility] [address], [address] -------- FINAL REPORT -------- Dictated By: Alexis Hurst Dictated Date: 01/01/2025 09:41 ET Assigned Physician: Alexis Hurst Reviewed and Electronically Signed By: Alexis Hurst Signed Date: 01/01/2025 10:00 ET Workstation ID: [id number] Transcribed By: Self Edit Transcribed Date: 01/01/2025 09:41 ET Narrative 01/01/2025 10:00 AM EDT EXAM: SCREENING MAMMOGRAPHY, BILATERAL HISTORY: SCREENING. No additional history. COMPARISON: 06/03/21, 02/10/16 TECHNIQUE: Synthesized CC and MLO projections of each breast. Tomosynthesis of each breast in the CC and MLO projections. ADDITIONAL IMAGING: None Computer-aided detection was employed with the [employer] AI 3-D. TISSUE DENSITY: The breasts are heterogeneously dense, which may obscure small masses. (BI-RADS category C) FINDINGS: RIGHT BREAST: No suspicious mass. No suspicious calcification. No distortion. No additional suspicious right breast findings LEFT BREAST: No suspicious mass. No suspicious calcification. No distortion. No additional suspicious left breast findings Procedure Note Alexis Hurst MD - 01/01/2025 EXAM: SCREENING MAMMOGRAPHY, BILATERAL HISTORY: SCREENING. No additional history. COMPARISON: 06/03/21, 02/10/16 TECHNIQUE: Synthesized CC and MLO projections of each breast.Tomosynthesis of each breast in the CC and MLO projections. ADDITIONAL IMAGING: None Computer-aided detection was employed with the [employer] AI 3-D. TISSUE DENSITY: The breasts are heterogeneously dense, which may obscuresmall masses. (BI-RADS category C) FINDINGS: RIGHT BREAST: No suspicious mass. No suspicious calcification. No distortion. Noadditional suspicious right breast findings LEFT BREAST: No suspicious mass. No suspicious calcification. No distortion. Noadditional suspicious left breast findings IMPRESSION: No mammographic evidence of malignancy. No suspicious interval change. A negative mammogram in the presence of a clinically suspicious palpableabnormality does not preclude the possibility of malignancy or alter theindications for biopsy. ASSESSMENT: BI-RADS 1: NEGATIVE RECOMMENDATION(S): 1: Routine screening mammogram BILATERAL in 1 year. [facility]amm[facility] location: [facility] at [address], [address] -------- FINAL REPORT -------- Dictated By: Alexis Hurst Dictated Date: 01/01/2025 09:41 ET Assigned Physician: Alexis Hurst Reviewed and Electronically Signed By: Alexis Hurst Signed Date: 01/01/2025 10:00 ET Workstation ID: [id number] Transcribed By: Self Edit Transcribed Date: 01/01/2025 09:41 ET Monalisa White CNM IMG BI PROCEDURES Final Resul t * Colonoscopy (07/03/2017) Colonoscopy no interpretation , abstracted Anatomical Region Laterality Modality Other Historical Provider HEALTH MAINTENANCE Final Result * Cervical Cancer Screening: HPV (06/13/2017) Cervical Cancer Screening: HPV normal, abstracted Historical Provider HEALTH MAINTENANCE Final Result from Last 3 Months or Most Recently Relevant to Health Maintenance Insurance [facility] Care Teams Aircraft Electrical Systems Specialist Relationship Specialty Start Date End Date Jewell Lemus MD [address] [place] [phone] PCP - General 03/27/20
--- OUTSIDE RECORDS SUMMARY | 2025-04-15 10:35 | XMS_ITS | Encounter Summary ---
Author Organization [facility] Address [address] [place] [address] [address] [place] [address] Care Team Providers Care Factory Superintendent Name Role Phone Jewell Lemus MD Primary Care Provider + Encounter Details Date Type Department Care Team (Late Contact Info) Description 10/17/2022 Orders Only [facility] [address] [place] [phone] Lauren Etienne LPN Social History Tobacco Use Types Packs/Day Years Used Date Smoking Tobacco: Never Smokeless Tobacco: Never Alcohol Use Standard Drinks/Week Comments Never 0 (1 standard drink = 0.6 oz pur e alcohol) Depression Answer Date Recorded Patient Health Questionnaire-2 Score 0 08/12/2022 Comments Unknown Sex and Gender Information Value Date Recorded Sex Assigned at Female 05/30/2022 10:16 AM EDT Legal Sex Female 10:16 AM EDT Gender Identity Female 05/30/2022 10:16 AM EDT Sexual Orientation Straight 05/30/2022 10 :16 AM EDT documented as of this encounter Plan of Treatment Upcoming Encounters Date Type Department Care Team (Late st Contact Info) Description 04/22/2025 11:45 AM EDT Office Visit [facility] [address] [place] [phone] Jewell Lemus MD [address] [place] [address] [phone] documented as of this encounter Visit Diagnoses Not on filedocumented in this encounter Care Teams Factory Superintendent Relationship Specialty Start Date End Date Jewell Lemus MD [address] [place] [address] [phone] PCP - General Family Medicine 06/05/17 documented as of this encounter
--- OUTSIDE RECORDS SUMMARY | 2025-04-15 10:35 | XMS_ITS | Clinical Summary ---
Author Organization [facility] Address [address] [place] [address] Care Team Providers Care Powder Truck Driver Name Role Phone Liv San PA-C Primary Care Provider [phone] Source Comments PLEASE NOTE, if this patient is a minor, it may be UNLAWFUL to discuss sensitive information that is contained in these records (such as FAMILY PLANNING, MENTAL HEALTH or SUBSTANCE ABUSE) with the minor patient's parent or other person without the patient's specific authorization.[facility] Allergies Active Allergy Reactions Criticality Noted Date Comments Aspirin Swelling 03/10/2016 Ketorolac Tromethamine Swelling 03/10/2016 Penicillin Diarrhea 03/10/2016 Medications PROCHAMBER USE WITH INHALER UTD 0 6 Active magnesium oxide (MAG-OX) 400 mg tablet TK 1 T PO D HS DIRECTED 3 6 Active methocarbamol (ROBAXIN) 500 mg tabletIndications :Neck pain on left side Take 1 Tab by mouth 3 (three) times daily as needed (muscle spasm) 60 Tab 7 Active PROAIR HFA 90 mcg/actuation inhalerIndication s:Mild intermittent asthma without complication ([facility]) Inhale 2 Puffs into the lungs every 6 (six) hours as needed for shortness of breath or wheezing 1 Inhaler 3 7 Active butalbital-acetam inophen-caffeine (FIORICET, ESGIC) 50-325-40 mg per tabletIndications :Migraine without status migrainosus, not intractable, unspecified migraine type Take 1-2 tabs every 8 hours prn. 10 Tab 1 7 Active Active Problems Problem Noted Date Diagnosed Date Irritable bowel syndrome with diarrhea 7 Left flank pain 04/20/2016 Overview (04/20/2016): [facility] ER 04/14/16- abd cT- no evidence of obstruction, + small b/l nonobstucting renal calculi Mild intermittent asthma without complication ([facility]) Overview (03/10/2016): non smoker, usepro air- using daily in summer, has controller not sure name Migraines Overview (03/10/2016): fioricet- monthly- 5 occur monthly Dyslipidemia Overview (03/10/2016): diet regulated Kidney stone Overview (03/10/2016): last was 3 yr ago. not followed by urology Pap smear for cervical cancer screening Overview (03/10/2016): abnormal x 1 in past, 5 yr ago. no surg to cervix. since then pap normal. 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 char Estrada. takes nexium- never had Gi studies, has fhx, chrons- nephew and stomach cancer- mother GF; maternal uncle colon cancer Family History Medical History Relation Name Comments Cancer Brother testicular Diabetes Father Gastrointestinal Problems Father ul cer High Cholesterol Father Hypertension Father Cancer Maternal Grandfather stomach Heart Problems Maternal Grandmother Arthritis Mother Diabetes Mother High Cholesterol Mother Hypertension Mother Osteoporosis Mother Stroke Paternal Grandmother Arthritis Sister pain Relation Name Status Comments Brother Alive Father Alive Maternal Grandfather Maternal Grandmother Mother Alive Paternal Grandfather Alive Paternal Grandmother Sister pain Alive Social History Tobacco Use Types Packs/Day Years Used Date Smoking Tobacco: Never Alcohol Use Standard Drinks/Week Comments Yes 2 (1 standard drink = 0.6 oz pur e alcohol) occ Social Connections Answer Date Recorded Social Connections and Isolation 0 03/24/2019 Financial Resource Strain Answer Date R ecorded Financial Resource Strain 0 2018 Stress Answer Date Recorded Stress 0 03/24/2019 Physical Activity Answer Date Recorded Physical Activity 0 03/24/2019 Food Insecurity Answer Date Recorded Food 0 03/24/2019 Transportation Needs Answer Date Record ed Transportation 0 03/24/2019 Housing Stability Answer Date Recorded Housing 0 03/24/2019 Safety and Environment Answer Date Zane rded Safety 0 03/24/2019 Utilities Answer Date Recorded Utilities 0 03/24/2019 Employment Answer Date Recorded Employment 0 03/24/2019 Comments No Sex and Gender Information Value Date Recorded Sex Assigned at Female 05/15/2017 7:54 AM PDT Legal Sex Female 6:23 AM PDT Gender Identity Female 05/15/2017 7:54 AM PDT Sexual Orientation Straight 05/15/2017 7: 54 AM PDT 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 Not on file Not on file Last Filed Vital Signs Vital Sign [place] Time Taken Comments Blood Pressure 92/72 05/15/2017 9:52 AM EDT Pulse 84 05/15/2017 9:52 AM EDT Temperature 36.7 C (98.1 F) 05/15/2017 9:52 AM EDT Respiratory Rate 16 05/15/2017 9:52 AM EDT Oxygen Saturation 100% 09/01/2016 11:19 AM EST Inhaled Oxygen Concentration - - Weight 66.7 kg (147 lb) 05/15/2017 9:52 AM EDT Height 160 cm (5' 3 ) 05/15/2017 9:52 AM EDT Body Mass Index 26.04 05/15/2017 9:52 AM EDT Plan of Treatment Not on file Insurance [facility] Member Subscriber Plan / Payer (Ef fective 2016-Present) Name:Toshia Waters Relation to Subscriber:Self Name:Toshia Waters Payer ID:[id number] Group ID:Not on file Type:Medicaid Address: [facility] [id number] [place] [id number] Care Teams Powder Truck Driver Relationship Specialty Start Date End Date Liv San PA-C [address] [place] [address] PCP - General Internal Medicine 06/15/19
--- OUTSIDE RECORDS SUMMARY | 2025-04-15 10:35 | XMS_ITS | Clinical Summary ---
Author Organization [employer] Address [address] [place] [address] [address] [place] [address] Care Team Providers Care Nat Instructor Name Role Phone Jewell Lemus MD Primary Care Provider + Allergies Active Allergy Reactions Criticality Noted Date Comments Amoxicillin 08/12/2022 Aspirin Other reaction(s): unspecified Aspirin Buffered Swelling 09/21/2023 Fluoxetine 10/03/2017 Ketorolac Tromethamine 12/23/2015 Penicillins 10/21/2014 Venlafaxine Dizziness 10/03/2017 Other reaction(s): Blurred VIsion Medications * This document contains information received from the source organization and may not represent a complete record from that organization. triamcinolone (Kenalog) 0.1 % cream Apply topically if needed in the morning and at bedtime (pain and swelling). 30 g 2 4 Active acetaminophen (Tylenol) 500 MG tablet Take 2 tablets (1,000 mg) by mouth every 6 (six) hours if needed for moderate pain or fever for up to 25 doses. 30 tablet 5 Active butalbital-acet aminophen-caffe ine 50-325-40 MG tabletIndicatio ns:Migraine without aura, not refractory TAKE 1 TO 2 TABLETS BY MOUTH EVERY 8 HOURS NEEDED. NOT TO EXCEED 6 TABLETS PER 24 HOURS 20 tablet 2 5 Active albuterol (ProAir HFA) 108 (90 Base) MCG/ACT inhalerIndicati ons:Influenza A Inhale 2 puffs every 4 (four) hours if needed for wheezing or shortness of breath. 18 g 2 5 02/14/20 26 Active Active Problems Problem Noted Date Diagnosed Date Tiredness 02/13/2025 Assessment & Plan (02/13/2025 3:00 PM EDT): Unclear if related to worsening asthma, may need inhaled steroids, order PFTs. Order other labs to rule out organic conditions including DM, TSH, CBC. Consider menopausal changes, will follow-up at next visit Discussed with patient importance of routine follow-up with rheumatology due to history of infectious mononucleosis and low titers JEWELL's that could be responsible for some of the symptoms. I gave her the information of rheumatology office History of panic attacks 02/13/2025 Assessment & Plan (02/13/2025 12:06 PM EDT): During IBH Consult Toshia presenting with excessive worry/anxiety, difficulty controlling worry, anxiety/worry associated to restlessness and/or feeling keyed-up/On edge , easily fatigued , difficulty concentrating and/or mind going blank , irritability, muscle tension , and sleep disturbance difficulty falling asleep and difficulty staying asleep , Fear , and sense of dread ; for a period of 6-12 mo, for most or all symptoms in the context of unable to identify significant stressors. Pt's presenting concern is not being able to manage her anxiety. This is leading to negative impacts in her daily life, especially, with her interpersonal relationships. No specific triggers associated with current presentation of sxs. Family hx of mental health disorders: son diagnosed with schizophrenia and panic attacks. Pt is aware of coping strategies to decrease her anxiety. She was able to practice breathing exercises during session. Declined OP referral, open to follow-up with clinician during next medical appointment. BROOKE (generalized anxiety disorder) 02/13/2025 Assessment & Plan (02/13/2025 12:06 PM EDT): During IBH Consult Toshia presenting with excessive worry/anxiety, difficulty controlling worry, anxiety/worry associated to restlessness and/or feeling keyed-up/On edge , easily fatigued , difficulty concentrating and/or mind going blank , irritability, muscle tension , and sleep disturbance difficulty falling asleep and difficulty staying asleep , Fear , and sense of dread ; for a period of 6-12 mo, for most or all symptoms in the context of unable to identify significant stressors. Pt's presenting concern is not being able to manage her anxiety. This is leading to negative impacts in her daily life, especially, with her interpersonal relationships. No specific triggers associated with current presentation of sxs. Family hx of mental health disorders: son diagnosed with schizophrenia and panic attacks. Pt is aware of coping strategies to decrease her anxiety. She was able to practice breathing exercises during session. Declined OP referral, open to follow-up with clinician during next medical appointment. Overweight 02/13/2025 Assessment & Plan (02/13/2025 2:56 PM EDT): She has lost few pounds since last years, I discussed re weight reduction options including exercise, life style modifications, diet. Recommended to decrease soda and sugary beverage consumption, increase protein intake with meals (at least 1 portion of protein with each meal) to assist with satiety, increase dietary fiber Recommended at least 150 min/week of moderate intensity exercise. Declined referral to dietitian Adjustment disorder with depressed mood 02/14/20 25 Assessment & Plan (02/13/2025 3:07 PM EDT): Patient is having hard time dealing with chronic tiredness and other chronic conditions. PHQ9 is 9, patient seen by counselor Influenza A 09/26/2024 Assessment & Plan (09/26/2024 4:04 PM EST): -rapid influenza A positive -Tamiflu 75 MG, BID for 5 days -droplet precautions discussed -supportive care discussed -given work note and instructed pt to call if symptoms prolong and work requires an updated note. Abnormal finding on MRI of brain 12/06/2023 Overview (12/06/2023): MRI brain 11/08/23: Unspecific WM densities. Sent to neurology. Pure hypercholesterolemia 11/16/2023 Assessment & Plan (11/16/2023 1:43 PM EDT): We discussed re rx options. Recommended moderate amount of exercise and increase consumption of fruit, vegetables, fish and high fiber foods. Should decrease consumption of highly saturated fats or trans fats. Information given to pt Decreased vision 11/16/2023 Assessment & Plan (11/16/2023 1:43 PM EDT): Refer to ophthalmology Bilateral carpal tunnel syndrome 10/19/2023 Assessment & Plan (11/16/2023 1:40 PM EDT): Seen by orthopedics, advised her to schedule appointment with OT Advised to use hand brace regularly Chronic Amelia Brown virus (EBV) infection 10/04 Assessment & Plan (11/16/2023 1:43 PM EDT): Positive IGG and IGM titers for more than 10 yrs now We had discussed with pt regarding implications and need for monitoring of recurrent mononucleosis Sx including leukopenia, arthritis, and lymphoproliferative disorders ect. . FU w hematology every yr Assessment & Plan (10/05/2023 1:51 PM EST): Capsid IGM antigen is chronically positive Continue monitoring myeloproliferative disorders, check LDH Suppurative hidradenitis 10/05/2023 Assessment & Plan (10/05/2023 1:52 PM EST): On pubic area, has occasional lesions on axillar Counseled to avoid razors, keep the area clean and dry, avoid vaginal douches Use warm compresses on effected areas + antibiotic ointment Pt wants a referral to dermatology, I explained that at this time she does not additional PO antibiotics Pre-syncope 10/05/2023 Assessment & Plan (11/16/2023 1:40 PM EDT): No further episodes Assessment & Plan (10/05/2023 1:53 PM EST): Recently, unclear if related to chronic EBV vs other conditions. I advised against driving or performing activities that require vigilance Order MRI of the brain Bilateral hand numbness 10/05/2023 Assessment & Plan (10/05/2023 1:54 PM EST): Unclear if related to DGD of cervical spine vs other neuropathies Followed by orthopedics, continue wearing hand braces bilateral FU after nerve conduction study (from orthopedics) Positive JEWELL (antinuclear antibody) 10/05/2023 Assessment & Plan (10/05/2023 1:55 PM EST): She's had low positive for many years, now with the presence of constitutional Sx and potential neuropathy and question of presyncope. Systemic conditions need to be ruled out ie. MS, SLE, ect. Refer to rheumatology Order MRI of the brain Intrinsic eczema 10/05/2023 Assessment & Plan (10/05/2023 1:56 PM EST): On upper extremities Keep area hydrated, can use OTC hydrocortisone cream on affected areas Fu PRN Decreased vision in both eyes 04/20/2023 Assessment & Plan (02/13/2025 2:57 PM EDT): Referred to ophthalmology Assessment & Plan (04/20/2023 12:53 PM EDT): Will refer to ophthalmology Bilateral leg edema 04/20/2023 Assessment & Plan (02/13/2025 3:01 PM EDT): Asymptomatic at this time, she never follow-up with vascular surgery, advised to wear compression stockings and follow-up at next visit Order labs and urinalysis, advised to lower salt intake, Assessment & Plan (04/20/2023 12:54 PM EDT): Most likely varicose veins Will refer to vascular surgeon Encounter for colorectal cancer screening 2022 Assessment & Plan (02/13/2025 2:57 PM EDT): Never went to GI appointment, will refer to GI again Assessment & Plan (04/20/2023 12:59 PM EDT): Pt seen by GI, counseled to FU with them and schedule colonoscopy. 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 Assessment & Plan (11/16/2023 1:40 PM EDT): Counseled to use tylenol PRN and Fu with rheumatology Reassurance about possible not acute inflammation Fu in 3-4 months Bartholinitis 08/12/2022 Bilateral tinnitus 08/12/2022 Posterior cervical adenopathy 08/12/2022 Assessment & Plan (04/20/2023 12:56 PM EDT): Most likely benign Will refer to ENT for evaluation and potential biopsy Blood work is negative Dyslipidemia 08/12/2022 Overview (08/12/2022): diet regulated Folliculitis 08/12/2022 History of hysterectomy for benign disease 08/12 Kidney stone 08/12/2022 Overview (08/12/2022): last was 3 yr ago. not followed by urology Assessment & Plan (02/13/2025 2:58 PM EDT): No recent episodes, patient is concerned regarding hematuria. Repeat UA, if hematuria is persistent, will send back to follow-up with urologist. Patient does not have menstrual period. Jaw pain 08/12/2022 Migraine without aura, not refractory 08/12/2022 Assessment & Plan (02/13/2025 2:59 PM EDT): Doing well on Tylenol Fioricet as needed, refill sent to pharmacy Will refer to ophthalmology, to rule out refractory issues Assessment & Plan (04/20/2023 12:55 PM EDT): Use tylenol or Fioricet PRN Mild intermittent asthma without complication Overview (08/12/2022): non smoker, usepro air- using daily in summer, has controller not sure name Assessment & Plan (02/13/2025 2:59 PM EDT): No recent exacerbations, however it is unclear if some of the RACHEL is related to worsening of asthma. I will order PFTs Continue albuterol as needed, recommended mild to moderate exercise, she is a non-smoker. Assessment & Plan (09/26/2024 4:02 PM EST): Positive for influenza A. Has been feeling worsened wheezing. Lungs CTA on exam. -refilled inhaler today. Primary insomnia 08/12/2022 Seasonal allergies 08/12/2022 Tenosynovitis 08/12/2022 Mild persistent asthma without complication 07/31 Assessment & Plan (04/20/2023 12:48 PM EDT): Controlled Continue using Proair PRN Declines PNA and COVID IZ Benign neoplasm of soft tissue 09/21/2018 Visual impairment 10/27/2017 Lesion of vulva 09/26/2017 Leukopenia 06/28/2017 Overview (04/20/2023): Since early , seen by Hematology ([facility] Neg w/u/ neg ANC Last BW on 08/2022 Assessment & Plan (10/05/2023 1:49 PM EST): Persistent, she has appointment with hematology, on 10/17 at 9:40 AM, pt is aware. 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 Date Type Department Care Team Description 02/28/2025 Telephone [facility] MEDICINE [address] [place] [address] Jewell Lemus MD Nurse Triage 02/27/2025 Telephone [facility] OPTOMETRY [address] [place] [address] Jose Luis, Megan, OD 02/13/2025 9:45 AM EDT Office Visit [facility] MEDICINE [address] [place], [place] [phone] Jewell Lemus MD Tiredness (Primary Dx); Bilateral leg edema; Encounter for colorectal cancer screening; Overweight; Mild intermittent asthma without complication; Kidney stone; Migraine without aura, not refractory; Decreased vision in both eyes; Adjustment disorder with depressed mood; Exercise counseling; Dietary counseling; Encounter for screening colonoscopy 02/13/2025 Refill [facility] CH[facility] MED & PEDS [address] [place], [place] [phone] Jewell Lemus MD Influenza A 02/13/2025 Travel 02/04/2025 Patient Outreach [facility] MEDICINE [address] [place], [place] [phone] Jewell Lemus MD Pre-visit Planning (SDOH screening negative and tobacco screening negative) from Last 3 Months Social History Tobacco Use Types Packs/Day Years Used Date Smoking Tobacco: Never Smokeless Tobacco: Never Tobacco Cessation:Counseling Given: Not Answered Alcohol Use Standard Drinks/Week Comments Never 0 (1 standard drink = 0.6 oz pur e alcohol) Depression Answer Date Recorded Patient Health Questionnaire-9 Score 21 02/13/2025 Patient Health Questionnaire-9 Score 21 02/13/2025 Last PHQ-9: Questionnaire Data Not on file 0 02/13/2025 Housing Stability Answer Date Recorded What is your housing situation today? I have rebeca morales 02/04/[address] you li ve. Do you have problems with any of the following? None of the above 02/04/2025 Food Insecurity Answer Date Recorded Within the past 12 months, y ou worried that your food would run out before you got money to buy more: Never True 02/04/2025 Within the past 12 months,th e food you bought just didn't last and you didn't have enough money to get more: Never True 02/2025 Transportation Answer Date Recorded In the past 12 months, has l ack of transportation kept you from medical appts, meetings, work or from getting things needed for daily living? No 02/04/2025 Utilities Answer Date Recorded In the past 12 months, has t he electric, gas, oil or water company threatened to shut off services in your home? No 02/04/2025 Depression Answer Date Recorded Patient Health Questionnaire-2 Score 6 02/13/2025 Internet Access Answer Date Recorded Internet Access Q1 Yes 02/04/2025 Internet Access Q2 Not on file 02/04/2025 Comments No Sex and Gender Information Value Date Recorded Sex Assigned at Female 05/30/2022 10:16 AM EDT Legal Sex Female 10:16 AM EDT Gender Identity Female 05/30/2022 10:16 AM EDT Sexual Orientation Straight 05/30/2022 10 :16 AM EDT Last Filed Vital Signs Vital Sign Reading Time Taken Comments Blood Pressure 100/68 02/13/2025 9:54 AM EDT Pulse 100 02/13/2025 9:54 AM EDT Temperature 36.8 C (98.3 F) 02/13/2025 9:54 AM EDT Respiratory Rate 21 02/13/2025 9:54 AM EDT Oxygen Saturation 98% 02/13/2025 9:54 AM EDT Inhaled Oxygen Concentration - - Weight 68 kg (150 lb) 02/13/2025 9:54 AM EDT Height 157.5 cm (5' 2 ) 02/13/2025 9:54 AM EDT Body Mass Index 27.44 02/13/2025 9:54 AM EDT Plan of Treatment Upcoming Encounters Date Type Department Care Team (Late st Contact Info) Description 04/22/2025 11:45 AM EDT Office Visit [facility] MEDICINE [address] [place] [address] Jewell Lemus MD [address] [place] [address] Health Maintenance Due Date Last Done Comments CT Colonography 1974 Colonoscopy 1974 Colorectal Cancer Screening 1974 FIT DNA/Cologuard 1974 FIT 1974 FOBT 1974 Sigmoidoscopy 1974 Family Planning (PISQ) 1989 Hepatitis B Vaccines (1 of 3 - 19+ 3-dose series) 1993 Pneumococcal Vaccine: 50+ Years (1 of 2 - PCV) 1993 DTaP/Tdap/Td Vaccines (2 - Td or Tdap) 09/25/2023 09/25/2013, 04/13/2005 Zoster Vaccines (1 of 2) 2024 COVID-19 Vaccine (1 - season) 2025 Influenza Vaccine (#1) 2025 8, 08/13/2012, 08/13/2012, Additional history exists Depression Monitoring 08/16/2025 02/13/2025, 025 Tobacco Screening 09/26/2025 09/26/2024 Mammogram 12/31/2025 12/31/2024, 06/0 09/2024, 06/28/2018 SDOH Screening 02/04/2026 02/04/2025 Alcohol/Substance Use Screening 02/13/2026 02/13/2025 Disability Screening 02/13/2026 02/13/2025 RSV Patients and Patients Aged 60 years or older (1 - 1-dose 75+ series) 2049 HPV/Cotest Discontinued 04/04/2018 HIV Screening Completed 08/31/2022 Hepatitis C Screening Completed 08/31/2022 Cervical Cancer Screening Discontinued HIB Vaccines Aged Out No longer eligi [...] patient's age to complete this topic Meningococcal Vaccine Aged Out No carla domonique eligible based on patient's age to complete this topic Pap Smear Discontinued RSV under 20 months Aged Out No longe r eligible based on patient's age to complete this topic Rotavirus Vaccines Aged Out No longer eligible based on patient's age to complete this topic Procedures Procedure Name Priority Date/Time Associated Diagnosis Comments HEPATITIS C ANTIBODY REFLEX Routine 08/31/2022 1:20 PM EST HIV ANTIBODY/ANTIGEN ([place] DPH) Routine 08/31/2022 1:20 PM EST BI MAMMOGRAM SCREENING BILATERAL Routine 06/28/2018 8:19 AM EST [facility] HISTORICAL HPV MRNA E6/E7 Routine 04/04/2018 11:39 AM EDT from Last 3 Months or Most Recently Relevant to Health Maintenance Results * Hepatitis C Antibody Reflex (08/31/2022 1:20 PM EST) Hepatitis C Antibody Nonreactive Nonreactive [facility] Comment:Antibodies to HCV no t detected; does not exclude early acuteHCV infection. 08/31/2022 1:20 PM EST 08/31/2022 1:20 PM EST us [facility] External Provider LAB BLO OD ORDERABLES Final Result [facility] [address] [place] [phone] * HIV Ab/Ag ([place] D[facility]) (08/31/2022 1:20 PM EST) HIV AB/AG Nonreactive Nonreactive [facility] Comment:HIV-1 p24 Ag and/or HIV-1/HIV-2 Ab not detected.A test result that is nonreactive does not exclude thepossibility of exposure to or infection with HIV-1 and/orHIV-2. Nonreactive results in this assay for individualswith prior exposure to HIV-1 and/or HIV-2 may be due toantigen and antibody levels that are below the limit ofdetection of this assay.The [employer] HIV Ag/Ab Combo assay result andsupplemental assay results should be interpreted inconjunction with the patient's clinical presentation,history and other laboratory results. If the results areinconsistent with clinical evidence, additional testing issuggested to confirm the result. 08/31/2022 1:20 PM EST 08/31/2022 1:20 PM EST [facility] External Provider LAB BLO OD ORDERABLES Final Result Performing Organization Address City/State/[facility] Co de Phone Number [facility] [address] [place] [phone] * DIGITAL BILATERAL SCREEN 1 (06/28/2018 8:19 AM EST) Anatomical Region Laterality Modality Breast Bilateral Mammography 06/28/2018 8:19 AM EST Narrative 06/28/2018 8:21 AM EST Refer to the Notes tab for result details [facility] Procedure: DIGITAL BILATERAL SCREEN 1 Procedure Note Provider, MD Tanika - 10/22/2022 Refer to the Notes tab for result details [facility] Procedure: DIGITAL BILATERAL SCREEN 1 Jewell Lemus MD IMG BI PROCEDURES Final Result * HPV mRNA E6/E7 (04/04/2018 11:39 AM EDT) HPV mRNA E6/E7 Not Detected NOT DETECTED [facility] Comment: This test was performed using the APTIMA(R) HPV Assay ([employer] This assay detects E6/E7 viral messenger RNA (mRNA) from 14 high-risk HPV types (16,18,31,33,35,39,45,51, 52,56,58,59,66,68). For additional information please refer to: http://education.PeekYou.[employer] [place]/faq/VBV026s0 (This link is being provided for informational/ educational purposes only.) The analytical performance characteristics of this assay have been determined by [employer] [place], [place]. The modifications have not been cleared or approved by the FDA. This assay has been validated pursuant to the CLIA regulations and is used for clinical purposes. Test Performed by [email or web address], [employer] [facility] [place], [address] [place] [address] Abiel Tran M.D., Ph.D., Director of Laboratories , CLIA [id number] Please note: Effective 04/11/2016, HPV testing will be performed using [employer]'s APTIMA test which targets mRNA. Detecting mRNA instead of DNA, as in older methods, offers significant improvements in specificity. 04/04/2018 11:3 9 AM EDT Vivienne Abrams CNM HISTORICAL/NON ORDERABLE LABS Final Result [facility] Anywhere [address] from Last 3 Months or Most Recently Relevant to Health Maintenance Insurance [facility] Address: [facility] [address] [place] [address] Care Teams Nat Instructor Relationship Specialty Start Date End Date Jewell Lemus MD [address] [place] [phone] PCP - General Family Medicine 06/05/17
== END 2025-04-15 09:46 | disposition home or self-care (01) ==
LOC: HO.HOS 08:45
PROVIDERS: PCP Internal Medicine
DX: G56.03 Carpal tunnel syndrome, bilateral upper limbs (principal)
CPT/HCPCS: 99203

== ENCOUNTER → 2025-04-15 08:45 | Outpatient (BNVA) | payer OTHER, SELFPAY | PROVIDERS: PCP Internal Medicine | DX: G56.03 Carpal tunnel syndrome, bilateral upper limbs (principal); R20.0 Anesthesia of skin; R20.2 Paresthesia of skin | CPT/HCPCS: 99202 ==

== ENCOUNTER 2025-04-19 09:01 | Outpatient (REF) | payer OTHER, SELFPAY ==
--- NOTE | ~2025-04-19 | XR_ITS ---
EXAMINATION: XR CHEST 2 VIEWS HISTORY: RACHEL COMPARISON: There are no prior studies available for comparison. FINDINGS: PA and lateral views of the chest are submitted. The lungs are expanded and clear. There is no pleural effusion, pneumothorax, or pulmonary vascular congestion. The heart is normal in size. The bones are intact. XR/XR chest 2V IMPRESSION: Clear lungs. Electronically signed by: Shashank Parra MD 04/21/2025 07:08 AM EDT
--- OUTSIDE RECORDS SUMMARY | 2025-04-19 09:05 | XMS_ITS | Clinical Summary ---
Author Organization [facility] Address [address] [place] [address] Care Team Providers Care Tumbler Machine Operator Name Role Phone Liv San PA-C Primary Care Provider [phone] Source Comments PLEASE NOTE, if this patient [...] mcg/actuation inhalerIndication s:Mild intermittent asthma without complication ([facility]) Inhale 2 Puffs into the lungs every [...] surg to cervix. since then pap normal. 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
--- OUTSIDE RECORDS SUMMARY | 2025-04-19 09:05 | XMS_ITS | Encounter Summary ---
Author Organization [employer] [facility] Address [address] [place] [address] [address] [place] [address] Care Team Providers Care Axle Polisher Name Role Phone Jewell Lemus MD Primary Care Provider + Encounter Details Date Type Department Care Team (Late Contact Info) Description 10/17/2022 Orders Only [facility] MEDICINE [address] [place] [phone] Lauren Etienne LPN Social History Tobacco Use [...] Description 04/22/2025 11:45 AM EDT Office Visit [facility] MEDICINE [address] [place] [phone] Jewell Lemus MD [address] [place] [phone] documented as of this encounter Visit Diagnoses Not on filedocumented in this encounter Care Teams Axle Polisher Relationship Specialty Start Date End Date Jewell Lemus MD [address] [place] [address] [phone] PCP - General Family Medicine 06/05/17 documented as of this encounter
--- OUTSIDE RECORDS SUMMARY | 2025-04-19 09:05 | XMS_ITS | Clinical Summary ---
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 Mammography location: [facility] [address], [address] -------- FINAL REPORT -------- Dictated By: Alexis Hurst Dictated Date: 01/01/2025 09:41 ET Assigned Physician: Alexis Hurst Reviewed and Electronically Signed By: Alexis Hurst Signed Date: 01/01/2025 10:00 ET Workstation ID: [id number] Transcribed By: Self Edit Transcribed Date: 01/01/2025 09:41 ET Narrative 01/01/2025 10:00 AM EDT EXAM: SCREENING MAMMOGRAPHY, BILATERAL HISTORY: SCREENING. No additional history. COMPARISON: 06/03/21, 02/10/16 TECHNIQUE: Synthesized CC and MLO projections of each breast. Tomosynthesis of each breast in the CC and MLO projections. ADDITIONAL IMAGING: None Computer-aided detection was employed with the [employer] AI 3-D. TISSUE DENSITY: The breasts are [...] None Computer-aided detection was employed with the [employer] AI 3-D. TISSUE DENSITY: The breasts are [...] year. Mammography location: [facility] [address], [address] -------- FINAL REPORT -------- Dictated By: Alexis Hurst Dictated Date: 01/01/2025 09:41 ET Assigned Physician: Alexis Hurst Reviewed and Electronically Signed By: Alexis Hurst Signed Date: 01/01/2025 10:00 ET Workstation ID: [id number] Transcribed By: Self Edit Transcribed Date: 01/01/2025 [...] Most Recently Relevant to Health Maintenance Insurance [facility] [employer] Care Teams Asphalt Engineer Relationship Specialty Start Date End Date Jewell Lemus MD [address] [place] [phone] PCP - General 03/27/20
--- OUTSIDE RECORDS SUMMARY | 2025-04-19 09:05 | XMS_ITS | Clinical Summary ---
Author Organization [employer] Address [address] [place] [address] [address] [place] [address] Care Team Providers Care Proof Passer Name Role Phone Jewell Lemus MD Primary [...] (04/20/2023): Since early , [place] Neg w/u/ neg ANC Last BW on [...] 7 Left flank pain 04/20/2016 Overview (02/13/2023): [facility] ER 04/14/16- abd cT- no evidence of obstruction, + small b/l nonobstucting renal calculi Anxiety 09/05/2012 Palpitations 01/12/2012 Encounters * This document contains information received from the source organization and may not represent a complete record from that organization. Date Type Department Care Team Description 02/28/2025 Telephone [facility] [address] [place] [address] Jewell Lemus MD Nurse Triage 02/27/2025 Telephone [facility] [address] [place] [address] Jose Luis, Megan, OD 02/13/2025 9:45 AM EDT Office Visit [facility] [address] [place] [place], [place] [phone] Jewell Lemus MD Tiredness (Primary Dx); Bilateral leg edema; Encounter for colorectal cancer screening; Overweight; Mild intermittent asthma without complication; Kidney stone; Migraine without aura, not refractory; Decreased vision in both eyes; Adjustment disorder with depressed mood; Exercise counseling; Dietary counseling; Encounter for screening colonoscopy 02/13/2025 Refill [facility] [address] [place], [place] [phone] Jewell Lemus MD Influenza A 02/13/2025 Travel 02/04/2025 Patient Outreach [facility] [address] [place] [place], [place] [phone] Jewell Lemus MD Pre-visit Planning (SDOH screening [...] Description 04/22/2025 11:45 AM EDT Office Visit [facility] [address] [place] [address] Jewell Lemus MD [address] [place] [address] Health Maintenance Due Date Last Done Comments [...] PM EST) Hepatitis C Antibody Nonreactive Nonreactive [facility] Comment:Antibodies to HCV no t detected; does not exclude early acuteHCV infection. 08/31/2022 1:20 PM EST 08/31/2022 1:20 PM EST us [facility] External Provider LAB BLO OD ORDERABLES Final Result [facility] [address] [place] [phone] * HIV Ab/Ag ([place] [facility]) (08/31/2022 1:20 PM EST) HIV AB/AG Nonreactive Nonreactive [facility] Comment:HIV-1 p24 Ag and/or HIV-1/HIV-2 Ab not detected.A test result that is nonreactive does not exclude thepossibility of exposure to or infection with HIV-1 and/orHIV-2. Nonreactive results in this assay for individualswith prior exposure to HIV-1 and/or HIV-2 may be due toantigen and antibody levels that are below the limit ofdetection of this assay.The [employer] HIV Ag/Ab Combo assay result andsupplemental assay results should be interpreted inconjunction with the patient's clinical presentation,history and other laboratory results. If the results areinconsistent with clinical evidence, additional testing issuggested to confirm the result. 08/31/2022 1:20 PM EST 08/31/2022 1:20 PM EST [facility] External Provider LAB BLO OD ORDERABLES Final Result Performing Organization Address City/State/[facility] Co de Phone Number [facility] [address] [place] [phone] * DIGITAL BILATERAL SCREEN 1 (06/28/2018 [...] mRNA E6/E7 Not Detected NOT DETECTED [facility] Comment: This test was performed using the APTIMA(R) HPV Assay ([employer] This assay detects E6/E7 viral messenger RNA (mRNA) from 14 high-risk HPV types (16,18,31,33,35,39,45,51, 52,56,58,59,66,68). For additional information please refer to: http://education.userADgents.Kior/faq/JVT530d2 (This link is being provided for informational/ educational purposes only.) The analytical performance characteristics of this assay have been determined by [employer] [place], [place]. The modifications have not been cleared or approved by the FDA. This assay has been validated pursuant to the CLIA regulations and is used for clinical purposes. Test Performed by [employer], [employer] [facility], [address] [place] [address] Abiel Tran M.D., Ph.D., Director of Laboratories , CLIA [id number] Please note: Effective 04/11/2016, HPV testing will be performed using [employer] APTIMA test which targets mRNA. Detecting mRNA instead of DNA, as in older methods, offers significant improvements in specificity. 04/04/2018 11:3 9 AM EDT Vivienne Abrams CNM HISTORICAL/NON ORDERABLE LABS Final Result [facility] Formerly [facility] [address] from Last 3 Months or Most Recently Relevant to Health Maintenance Insurance [facility] Address: [facility] [address] [place] [address] Care Teams Proof Passer Relationship Specialty Start Date End Date Jewell Lemus MD [address] [place] [phone] PCP - General Family Medicine 06/05/17
[2025-04-19 09:15] LABS: MANUAL DIFF FLAG NO
[2025-04-19 10:18] LABS: Hematocrit 38.7 % (37.0-47.0); Hemoglobin 12.5 g/dl (12.0-16.0); Imm Gran Abs Auto 0.00 X10*3/uL (0.00-0.03); Imm Gran Pct Auto 0.0 % (0.0-0.4); Lymphocytes Absolute Auto 1.6 X10*3/uL (1.2-4.9); Mean Corpuscular HGB Conc 32.3 g/dl (31.0-35.0); Mean Corpuscular Hemoglobin 27.8 pg (27.0-33.0); Mean Corpuscular Volume 86.2 fL (80.0-98.0); NRBC Abs Auto 0.000 X10*3/uL (0.0-0.012); NRBC Pct Auto 0.0 /100WBC (0.0-0.2); Platelet Count 315 X10*3/uL (160-400); Red Blood Count 4.49 X10*6/uL (4.20-5.50); White Blood Count 3.6 X10*3/uL (4.8-10.8)
[2025-04-19 10:37] LABS: Hemoglobin A1C 109.3671 umol/L; Total Hemoglobin (HGBA1C) 3297.9454 umol/L
[2025-04-19 10:43] LABS: Appearance Urine Clear; Glucose Urine UA Negative (Negative); PH 5.5 (5.0-9.0); Specific Gravity - Urine 1.020 (1.005-1.025)
[2025-04-19 11:16] LABS: Alanine Aminotransferase 18 U/L (0-31); Albumin Level 4.7 g/dL (3.5-5.0); Alkaline Phosphatase 122 U/L (39-117); Anion Gap 13 (12-20); Aspartate Amino Transferase 26 U/L (5-31); Blood Urea Nitrogen 15 mg/dL (9-16); Calcium 9.4 mg/dL (8.4-10.2); Carbon Dioxide 26 mmol/L (22-29); Chloride 107 mmol/L (96-108); Cholesterol 211 mg/dL (<200); Estimated Glomerular Filt Rate > 60; HDL Cholesterol 46 mg/dL (>40); Potassium 3.8 mmol/L (3.3-5.1); Sodium 142 mmol/L (135-145); Total Protein 7.8 g/dL (6.5-8.0); Triglycerides 195 mg/dL (<150)
[2025-04-19 11:23] LABS: Syphilis Screen Nonreactive (Nonreactive)
[2025-04-19 11:25] LABS: HBS Num1 0.30 mIU/mL (0-7.99); HBc Num1 0.11 S/CO (0.00-0.79); HBsAGNum1 0.40 S/CO (0.00-0.99); HIV Num 1 0.04 S/CO (0.00-0.99); Hepatitis A Antibody IgM 0.22 Index (0-0.79); Hepatitis B Surface Antigen Negative (Negative); ~HepC Num1 0.07 S/CO (0.00-0.79); ~Hepatitis A Antibody IgM Nonreactive (Nonreactive); ~Hepatitis B Surface Antibody NONREACTIVE (Nonreactive); ~Hepatitis C Antibody Nonreactive (Nonreactive)
[2025-04-19 14:13] LABS: Reflex LDLD? No
== END 2025-04-19 09:02 | disposition home or self-care (01) ==
LOC: HO.LAB 09:01
PROVIDERS: PCP Internal Medicine; Visit Provider Internal Medicine
DX: Z11.59 Encounter for screening for other viral diseases (principal); Z11.4 Encounter for screening for human immunodeficiency virus [HIV]; Z11.3 Encounter for screening for infections with a predominantly sexual mode of transmission; J45.20 Mild intermittent asthma, uncomplicated; R53.83 Other fatigue; E66.3 Overweight; R60.0 Localized edema; N20.0 Calculus of kidney; R06.09 Other forms of dyspnea
CPT/HCPCS: 36415; 71046; 80053; 80061; 81001; 82306; 83036; 84443; 85025; 86704; 86706; 86709; 86780; 86803; 87340; 87389

== ENCOUNTER → 2025-04-19 09:19 | Outpatient (BNV) | payer OTHER, SELFPAY | PROVIDERS: PCP Internal Medicine; Visit Provider Radiology Diagnostic Radiology | DX: R06.09 Other forms of dyspnea (principal) | CPT/HCPCS: 71046 ==